=== PATIENT | female | born 1945 | race Caucasian/White ===

== ENCOUNTER 2021-03-09 13:34 | Day surgery (SDC) | payer MEDICARE, MEDICAID ==
[~2021-03-09] VITALS: Ht 177.8 cm; Wt 85.8 kg
[2021-03-09] MEDS ORDERED: CHLORHEXIDINE 15 ML UDC PO ONE (14:00)
[2021-03-09] MEDS ORDERED: SODIUM CHLORIDE 0.9% 1,000 ML IV SCH (14:00)
[2021-03-09] MEDS ORDERED: CHLORHEXIDINE 15 ML UDC ONE (14:13)
[2021-03-09 14:19] VITALS: BP 170/86
[2021-03-09] MEDS ORDERED: PLEASE ENTER ALLERGIES MC SCH (14:30)
[2021-03-09] MEDS ORDERED: eliquis PO (14:44)
[2021-03-09] MEDS ORDERED: GLIP5TAB10 PO (14:44)
[2021-03-09] MEDS ORDERED: losartan PO (14:44)
[2021-03-09] MEDS ORDERED: ACET-1600 PO (14:44)
[2021-03-09] MEDS ORDERED: amiodarone PO (14:44)
[2021-03-09] MEDS ORDERED: torsemide PO (14:44)
[2021-03-09] MEDS ORDERED: metoprolol PO (14:44)
[2021-03-09] MEDS ORDERED: LIDOCAINE/PF 1%, 30ML ONE (14:49)
[2021-03-09] MEDS ORDERED: THROMBIN (RECOMBINANT) 5,000 UNIT VIAL TP ONE (14:49)
[2021-03-09] MEDS ORDERED: BUPIVACAINE/PF 0.25% ONE (14:49)
[2021-03-09] MEDS ORDERED: FENTANYL PF 250 MCG/5ML ONE (15:04)
[2021-03-09 15:12] LABS: BASOPHILS % (AUTO) 1 % (0-1); EOSINOPHILS % (AUTO) 2 % (1-7); LYMPHOCYTES % (AUTO) 16 % (22-44); MEAN CORPUSCULAR HEMOGLOBIN 29.6 pg (27.0-34.8); MEAN CORPUSCULAR HGB CONC 32.5 g/dL (32.4-35.8); MEAN PLATELET VOLUME 8.5 fL (7.4-10.4); MONOCYTES % (AUTO) 15 % (2-9); NEUTROPHILS % (AUTO) 65 % (42-75); PLATELET COUNT 202 x10^3/uL (130-400); RED BLOOD COUNT 4.25 x10^6/uL (3.82-5.3); RED CELL DISTRIBUTION WIDTH 16.8 % (9.6-15.2)
[2021-03-09] MEDS ORDERED: HEPARIN 1,000 UNITS/ML, 30ML ONE (15:13)
[2021-03-09 15:18] LABS: ANION GAP 10 mmol/L (5-15); CALCIUM 8.9 mg/dL (8.5-10.1); CHLORIDE 99 mmol/L (98-107)
[2021-03-09 15:23] LABS: ALANINE AMINOTRANSFERASE 18 U/L (12-78); ALKALINE PHOSPHATASE 135 U/L (45-117); BILIRUBIN,TOTAL 0.5 mg/dL (0.2-1.0); CREATININE 6.73 mg/dL (0.55-1.02); TOTAL PROTEIN 7.5 g/dL (6.4-8.2)
[2021-03-09] MEDS ORDERED: NACL IV ONE (15:30)
[2021-03-09] MEDS ORDERED: OXYcodone 5 MG/5 ML ORAL.SOL UDC PO PRN (15:30)
[2021-03-09] MEDS ORDERED: hydrALAzine 20 MG/ML, 1ML IV PRN (15:30)
[2021-03-09] MEDS ORDERED: HYDROmorphone 1 MG/ML, 1ML INJ IVPush PRN (15:30)
[2021-03-09] MEDS ORDERED: HALOPERIDOL 5 MG/ML IV PRN (15:30)
[2021-03-09] MEDS ORDERED: FENTANYL PF 100 MCG/2ML IV PRN (15:30)
[2021-03-09] MEDS ORDERED: LABETALOL 5MG/ML, 20ML IV PRN (15:30)
[2021-03-09] MEDS ORDERED: ARGATROBAN IV ONE (15:30)
[2021-03-09] MEDS ORDERED: PROMETHAZINE 25 MG/ML, 1ML IVPush PRN (15:30)
[2021-03-09 15:39] LABS: INTERNATIONAL NORMALIZED RATIO 1.07 (0.93-1.1); PROTHROMBIN TIME 11.4 Seconds (9.6-11.5)
[2021-03-09] MEDS ORDERED: PROPOFOL 10 MG/ML, 20ML ONE (16:32)
[2021-03-09] MEDS ORDERED: ONDANSETRON 2MG/ML, 2ML ONE (16:32)
[2021-03-09] MEDS ORDERED: CEFAZOLIN 1,000 MG ONE (16:32)
== END 2021-03-09 18:30 | disposition home or self-care (01) ==
LOC: OUT 13:34
PROVIDERS: ATTEND Surgery
DX: E11.22 Type 2 diabetes mellitus with diabetic chronic kidney disease (principal); I13.2 Hypertensive heart and chronic kidney disease with heart failure and with stage 5 chronic kidney disease, or end stage renal disease; N18.6 End stage renal disease; I50.9 Heart failure, unspecified; E78.5 Hyperlipidemia, unspecified; E03.9 Hypothyroidism, unspecified; Z20.822 Contact with and (suspected) exposure to COVID-19; Z79.01 Long term (current) use of anticoagulants; Z79.84 Long term (current) use of oral hypoglycemic drugs; Z79.899 Other long term (current) drug therapy; Z88.8 Allergy status to other drugs, medicaments and biological substances; Z91.040 Latex allergy status; Z99.2 Dependence on renal dialysis
CPT/HCPCS: 36830; 80053; 82962; 85025; 85610; 85730; 87635; 93005; C1768; J0690; J2405; J2704; J3010; J7030; J1644

== ENCOUNTER 2021-04-11 14:08 | Emergency (ER) | payer MEDICARE, MEDICAID ==
[~2021-04-11] VITALS: Ht 172.7 cm; Wt 75.0 kg
[~2021-04-11 14:08] MED LIST: ACET-1600 PO; GLIP5TAB10 PO; amiodarone PO; eliquis PO; losartan PO; metoprolol PO; torsemide PO
--- NOTE | 2021-04-11 14:28 | NUR ---
BIBA POST-OP AV FISTULA REMOVAL, SPO2 SAT IN 80S AND COULD NOT WEAN OFF OXYGEN. SATTING 97% ON 2L NC. NO OTHER COMPLAINTS AT THIS TIME. PT A&O, RESPS EVEN AND UNLABORED, VSS, NADN.
--- NOTE | 2021-04-11 15:33 | NUR ---
lab/xr at bedside
[2021-04-11 15:41] LABS: BASOPHILS % (AUTO) 1 % (0-1); EOSINOPHILS % (AUTO) 3 % (1-7); LYMPHOCYTES % (AUTO) 17 % (22-44); MEAN CORPUSCULAR HEMOGLOBIN 29.8 pg (27.0-34.8); MEAN CORPUSCULAR HGB CONC 32.4 g/dL (32.4-35.8); MEAN PLATELET VOLUME 8.5 fL (7.4-10.4); MONOCYTES % (AUTO) 17 % (2-9); NEUTROPHILS % (AUTO) 62 % (42-75); PLATELET COUNT 172 x10^3/uL (130-400); RED BLOOD COUNT 4.09 x10^6/uL (3.82-5.3)
[2021-04-11 15:51] LABS: ALANINE AMINOTRANSFERASE 14 U/L (12-78); ALBUMIN 2.7 g/dL (3.4-5.0); ANION GAP 11 mmol/L (5-15); CALCIUM 8.2 mg/dL (8.5-10.1); CHLORIDE 103 mmol/L (98-107)
[2021-04-11 15:53] LABS: ALKALINE PHOSPHATASE 161 U/L (45-117); BILIRUBIN,TOTAL 0.5 mg/dL (0.2-1.0); TOTAL PROTEIN 7.1 g/dL (6.4-8.2)
[2021-04-11 16:43] VITALS: BP 176/87
--- NOTE | 2021-04-11 16:43 | NUR ---
pt sat 89-93% on RA
--- NOTE | 2021-04-11 17:11 | NUR ---
pt sat 95% on ra with road test. pt deies SOB or other sx, a&o, resps even and unlabored, vss, ambulatory with personal walker use
--- NOTE | 2021-04-11 18:29 | NUR ---
pt educated on dc instructions, verbalized understanding. pt anbulatory to dc desk with steady gait using personal walker
== END 2021-04-11 18:40 | disposition home or self-care (01) ==
LOC: ED 18:00
DX: Z00.00 Encounter for general adult medical examination without abnormal findings (principal); R09.02 Hypoxemia; Z20.822 Contact with and (suspected) exposure to COVID-19; I44.7 Left bundle-branch block, unspecified; I10 Essential (primary) hypertension; E11.9 Type 2 diabetes mellitus without complications
CPT/HCPCS: 36415; 71045; 80053; 85025; 93005; 99285; U0003; U0005